=== PATIENT | male | born 1990 | race Caucasian/White ===

== ENCOUNTER 2018-04-29 18:50 | Emergency (ER) | payer OTHER ==
[~2018-04-29] VITALS: Ht 175.3 cm; Wt 77.1 kg
[~2018-04-29 18:50] MED LIST: AMOCLA875 PO; AMOX500 PO; Bactrim Ds Tab1 EACH PO; CEPH500 PO; CLIN150 PO; CYCL10 PO; Cipro500 MG PO; HYDACE5 PO; IBUP200 PO; IBUP800 PO; KETO10 PO; METPRE4DP PO; NAPR500 PO; NAPR550 PO; ONDA4 PO; ONDA4ODT MM; OXYACE5T PO; PENVK500 PO; PERM5TC TOP; PROM25 PO; RXNAPNA550 PO; RXPROM25 PO; SULTRIDS PO; TRAM50 PO; Ultram50 MG PO
[2018-04-29] MEDS ORDERED: Zovirax800 MG PO (19:05)
[2018-04-29] MEDS ORDERED: (None)20 M1 PO (19:05)
[2018-04-29] MEDS ORDERED: Ultram50 MG PO (19:05)
== END 2018-04-29 19:20 | disposition home or self-care (01) ==
LOC: ER 18:50
DX: B02.9 Zoster without complications (principal); Z88.8 Allergy status to other drugs, medicaments and biological substances; F17.200 Nicotine dependence, unspecified, uncomplicated; Z91.018 Allergy to other foods
CPT/HCPCS: 99282